=== PATIENT | male | born 1980 | race Caucasian/White ===

== ENCOUNTER 2017-06-13 10:56 | Inpatient (IN) | payer OTHER ==
[2017-06-13] MEDS ORDERED: CEFEPIME 1000 MG/NS 100 ML IV ONE ×2 (17:00)
[2017-06-13] MEDS ORDERED: DEXTROSE 50% IN WATER 50 ML VIAL(D50) IV PUSH SCH (17:30)
[2017-06-13] MEDS ORDERED: methylPREDNISolone SO SUCC INJ 2,000 MG in DEXTROSE 5% IN WATER INJ 250 ML IV ONE ×2 (17:30)
[2017-06-13] MEDS ORDERED: INSULIN HUMAN REGULAR 1,000 UNITS/10 ML VIAL IV PUSH SCH (17:30)
[2017-06-13] MEDS ORDERED: LEVOTHYROXINE SODIUM 100 MCG VIAL IV PUSH ONE (18:00)
[2017-06-13] MEDS ORDERED: LEVOTHYROXINE 400 MCG/NS 500 ML IV SCH ×2 (18:00)
[2017-06-13] MEDS ORDERED: CLINDAMYCIN 900 MG/NS 100 ML IV ONE ×2 (18:00)
[2017-06-13 19:00] VITALS: BP 120/61; PULSE 114; RESP 24; TEMP 99.2; O2SAT 99
[2017-06-13 20:00] VITALS: BP 140/74; PULSE 116; RESP 24; TEMP 99.2; O2SAT 98
[2017-06-13 21:00] VITALS: BP 139/73; PULSE 114; RESP 24; TEMP 99.7; O2SAT 98
[2017-06-13] MEDS ORDERED: VASOPRESSIN 80 U/NS 100 ML Titrate per Translife Protocol IV PRN ×2 (21:30)
[2017-06-13] MEDS ORDERED: DOPamine INJ 400 MG in SODIUM CHLOR 0.9% 250 ML INJ 240 ML IV SCH (21:45)
[2017-06-13 22:30] VITALS: BP 152/75; PULSE 122; RESP 24; TEMP 99.8; O2SAT 92
[2017-06-13 23:00] VITALS: BP 138/75; PULSE 117; RESP 24; TEMP 99.8; O2SAT 96
[2017-06-13] MEDS ORDERED: CEFEPIME 1000 MG/NS 100 ML IV SCH ×2 (23:00)
[2017-06-14] VITALS: BP 133/73; PULSE 114; RESP 24; TEMP 99.8; O2SAT 96
[2017-06-14] MEDS ORDERED: CLINDAMYCIN 900 MG/NS PREMIX 50 ML IV SCH
[2017-06-14 00:05] VITALS: O2SAT 96
[2017-06-14] MEDS ORDERED: ePHEDrine/NS 25 MG/5 ML SYRINGE IV ONE (01:52)
[2017-06-14] MEDS ORDERED: LACTATED RINGER'S 1000 ML INJ 1,000 ML IV ONE (01:52)
[2017-06-14] MEDS ORDERED: PHENYLEPH/NS 1000 MCG/10 ML SYR IV ONE (01:52)
[2017-06-14] MEDS ORDERED: PHENYLEPHRINE HCL 10 MG/ML VIAL IV ONE (01:52)
[2017-06-14] MEDS ORDERED: methylPREDNISolone SOD SUCC 1000 MG/16 ML VIAL IV SCH (02:00)
== END 2017-06-14 01:53 | disposition expired | DRG 951 ==
LOC: MERGE 10:56 → UNMERGE 10:56 → HCPC 10:56
DX: Z52.89 Donor of other specified organs or tissues (principal)
CPT/HCPCS: 71045; 82805; 82948; 86850; 86900; 86901; 86920; 94003; J0692; J1815; J2370; J2930; J7040; J7060; J7120